=== PATIENT | male | born 1990 | race Caucasian/White ===

== ENCOUNTER 2017-01-18 23:52 | Emergency (ER) | payer SELFPAY ==
[~2017-01-18] VITALS: Ht 170.2 cm; Wt 80.0 kg
[~2017-01-18 23:52] MED LIST: CLIN150 PO; IBUP800T23 PO; LEVA750T PO
[2017-01-18 23:55] VITALS: BP 121/67; PULSE 80; RESP 14; TEMP 98.8; O2SAT 98
[2017-01-19 03:00] VITALS: BP 124/78; PULSE 80; RESP 18; O2SAT 97
--- NOTE | 2017-01-19 03:16 | PD ---
HPI Chief Complaint: Psychiatric Symptoms Time Seen by Provider: 03:09 Travel History International Travel<30 days: No Contact w/Intl Traveler<30days: No Traveled to known affect area: No History of Present Illness HPI 26-year-old white male presents to emergency department under voluntary basis for psychological evaluation. He states that he feels underappreciated and depressed. He states that he feels better when he takes Xanax. He states that he buys it on the street. He and his father live in another person's house. He claims that he suffers from anxiety and depression which she self diagnosed. He smokes cigarettes, marijuana and alcohol. He denies any other drugs. He denies any toxic ingestions. No medical complaints. He states that he would feel better if he had Xanax. No suicidal or homicidal ideation. PFSH Past Medical History ADHD: No Asthma: Yes Weight (Kg): 3 Anxiety: Yes Depression: No Cancer: No Cardiovascular Problems: No Diabetes: No Diminished Hearing: No Genitourinary: No Headaches: Yes (OCCASIONAL HEADACHES) Immune Disorder: No Musculoskeletal: No Psychiatric: Yes Reproductive: No Respiratory: Yes Migraines: No Seizures: No Thyroid Disease: No Ulcer: No Tetanus Vaccination: < 5 Years Past Surgical History Surgical History: No Previous Surgery Appendectomy: No Cholecystectomy: No Social History Alcohol Use: Yes (WEEKLY) Tobacco Use: Yes (QUIT 1 MONTH AGO 1/2 pack every 3 days) Substance Use: Yes Allergies-Medications (Allergen,Severity, Reaction): Coded Allergies: Amoxicillin (Verified Allergy, Severe, 01/19/17) Has taken Keflex without any problem *MDRO Multi-Drug Resistant Organism (Verified Adverse Reaction, Unknown, ) 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 SKIN: Warm and dry. HEAD: Normocephalic and atraumatic. EYES: No scleral icterus. No injection or drainage. ENT: No nasal drainage noted. Mucous membranes pink. Airway patent. NECK: Supple, trachea midline. Moves head freely without obvious discomfort. CARDIOVASCULAR: Regular rate and rhythm without murmurs, gallops, or rubs. RESPIRATORY: Breath sounds equal bilaterally. No accessory muscle use. GASTROINTESTINAL: Abdomen soft, non-tender, nondistended. EXTREMITIES: No cyanosis or edema. BACK: Nontender without obvious deformity. No CVA tenderness. NEURO: Patient is alert and oriented. no sensorimotor deficits. Nonfocal. Normal speech. PSYCH: No delusions. No auditory or visual hallucinations. Data Data Last Documented VS Vital Signs Date Time Temp Pulse Resp B/P Pulse Ox O2 Delivery O2 Flow Rate FiO2 01/18/17 23:55 98.8 80 14 121/67 98 Room Air Orders Psych Screen (01/19/17 03:05) MDM Medical Decision Making Medical Screen Exam Complete: Yes Emergency Medical Condition: Yes Medical Record Reviewed: Yes Differential Diagnosis MDM: High Differential diagnoses: Schizophrenia, schizoaffective disorder, bipolar, anxiety, depression, adjustment reaction, mood disorder NOS, ODD, depressive disorder NOS, dementia, dementia with agitation, psychosis NOS, substance induced mood disorder, intermittent explosive disorder, Asperger syndrome, infection,electrolyte abnormality, malingering. Narrative Course Mental health screening discussed with the patient. Psychiatric screen ordered. The patient is medically cleared. This is medical clearance for psych eval Diagnosis Primary Impression: Medical clearance for psychiatric admission Scripts No Active Prescriptions or Reported Meds Condition: Stable Aelssandro Ferreira January 19, 2017 03:16
[2017-01-19 06:06] VITALS: BP 118/74; PULSE 72; RESP 18; O2SAT 97
--- NOTE | 2017-01-19 09:53 | PD ---
History of Present Illness Chief Complaint: Psychiatric Symptoms Time Seen by Provider: 09:50 Travel History International Travel<30 Days: No Contact w/Intl Traveler<30days: No Known affected area: No Legal Status Legal Status: Voluntary History of Present Illness: istory of Present Illness HPI 26-year-old white male presents to emergency department under voluntary basis for psychological evaluation. He states that he feels underappreciated and depressed. He states that he feels better when he takes Xanax. He states that he buys it on the street. He and his father live in another person's house. He claims that he suffers from anxiety and depression which she self diagnosed. He smokes cigarettes, marijuana and alcohol. He denies any other drugs. He denies any toxic ingestions. No medical complaints. He states that he would feel better if he had Xanax. No suicidal or homicidal ideation. Patient seen. Not suicidal or homicidal. Is requesting help with his recovery and substance abuse treatment options. PFSH Past Medical History ADHD: No Asthma: Yes Weight (Kg): 3 Anxiety: Yes Depression: No Cancer: No Cardiovascular Problems: No Diabetes: No Diminished Hearing: No Genitourinary: No Headaches: Yes (OCCASIONAL HEADACHES) Immune Disorder: No Musculoskeletal: No Psychiatric: Yes Reproductive: No Respiratory: Yes Migraines: No Seizures: No Thyroid Disease: No Ulcer: No Tetanus Vaccination: < 5 Years Past Surgical History Surgical History: No Previous Surgery Appendectomy: No Cholecystectomy: No Psychiatric History Psychiatric History Hx Psychiatric Treatment: [facility] [place] History of Inpatient Treatment: Yes Social History Hx Alcohol Use: Yes (WEEKLY) Hx Tobacco Use: Yes (QUIT 1 MONTH AGO 1/2 pack every 3 days) Hx Substance Use: Yes Substance Use Type: Alcohol, Marijuana, Nicotine/Cigarettes Hx of Substance Use Treatment: Yes (Detox x 5 years. 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 Orders Psych Screen (01/19/17 03:05) Diet Regular Basic (01/19/17 Breakfast) Results Vital Signs Date Time Temp Pulse Resp B/P Pulse Ox O2 Delivery O2 Flow Rate FiO2 01/19/17 06:06 72 18 118/74 97 Room Air 01/19/17 03:00 80 18 124/78 97 Room Air 01/18/17 23:55 98.8 80 14 121/67 98 Room Air Diagnosis Primary Impression: Medical clearance for psychiatric admission Psychiatrically Cleared: Yes Prescriptions No Active Prescriptions or Reported Meds Condition: Stable Savanah Strange January 19, 2017 09:53
--- NOTE | 2017-01-19 16:29 | PD ---
History of Present Illness Chief Complaint: Psychiatric Symptoms Time Seen by Provider: 09:40 Travel History International Travel<30 Days: No Contact w/Intl Traveler<30days: No Known affected area: No Legal Status Legal Status: Voluntary History of Present Illness: History of Present Illness HPI 26-year-old white male with past history of depressive disorder, nos as well as substance use disorder including marijuana, cocaine and benzodiazepine who presents to emergency department under voluntary basis for psychological evaluation. As per ED documentation he reported the following symptomatology ; " he feels unappreciated and depressed. He states that he feels better when he takes Xanax. He states that he buys it on the street. He and his father live in another person's house. He claims that he suffers from anxiety and depression . He smokes cigarettes, marijuana and alcohol. He denies any other drugs. He denies any toxic ingestions. No medical complaints. He states that he would feel better if he had Xanax. No suicidal or homicidal ideation.' The patient is seen. The EMR is reviewed. No laboratory data is available as no labs were drawn. He was last evaluated by psychiatry in 2013 in ED and was referred to [facility] for treatment of substance induced mood disorder. His only psychiatric admission was in 2008 at age [age] years old. The patient is alert, oriented male who is casually dressed. Appears to be maintaining basic hygiene. Speech is clear and logical, goal directed. There is no pressure. There is no psychosis and no jerel. He is requesting medication and more specifically Xanax. At the time of this evaluation he does not appear to be anxious. There is no suicidal or homicidal ideation, intent or plan. PFSH Past Medical History ADHD: No Asthma: Yes Weight (Kg): 3 Anxiety: Yes Depression: No Cancer: No Cardiovascular Problems: No Diabetes: No Diminished Hearing: No Genitourinary: No Headaches: Yes (OCCASIONAL HEADACHES) Immune Disorder: No Musculoskeletal: No Psychiatric: Yes Reproductive: No Respiratory: Yes Migraines: No Seizures: No Thyroid Disease: No Ulcer: No Tetanus Vaccination: < 5 Years Past Surgical History Surgical History: No Previous Surgery Appendectomy: No Cholecystectomy: No Psychiatric History Psychiatric History Hx Psychiatric Treatment: [facility] [place] in 2008 History of Inpatient Treatment: Yes Guns or firearms in home: No Social History Single male.Lives with his father. Hx Alcohol Use: Yes (WEEKLY) Hx Tobacco Use: Yes (QUIT 1 MONTH AGO 1/2 pack every 3 days) Hx Substance Use: Yes Substance Use Type: Alcohol, Marijuana, Nicotine/Cigarettes Hx of Substance Use Treatment: Yes (Detox x 5 years. 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 not impaired [facility] Medical Decision Making Medical Record Reviewed: Yes Assessment/Plan 26 year old male with hx of substance use disorder who presents to ED requesting psychiatric medication and more specifically Xanax. There is no other symptomatology reported. The patient at this time does not appear to be anxious. I have advised that he contact [facility] to engage inpatient treatment. At this time the patient does not meet criteria for inpatient psychiatric treatment. Staff will assist in setting up appointment for outpatient treatment. Orders Psych Screen (01/19/17 03:05) Diet Regular Basic (01/19/17 Breakfast) Results Vital Signs Date Time Temp Pulse Resp B/P Pulse Ox O2 Delivery O2 Flow Rate FiO2 01/19/17 06:06 72 18 118/74 97 Room Air 01/19/17 03:00 80 18 124/78 97 Room Air 01/18/17 23:55 98.8 80 14 121/67 98 Room Air Diagnosis Primary Impression: Medical clearance for psychiatric admission Additional Impression: Adjustment disorder Psychiatrically Cleared: Yes Referrals: [facility] (Out patient) YOU HAVE AN APPOINTMENT ON JANUARY 25Sunday AT 0800 AM [address]: [id number], [facility] Departure Forms: Tests/Procedures Patient Instructions: General Instructions, Mood Disorders (ED) Additional Instructions: FOLLOW UP WITH [facility] ANTHONY MENDEZ Med/ Other Pt Specific Info: No Meds Exist/No RX given Prescriptions No Active Prescriptions or Reported Meds Disposition: 01 DISCHARGE HOME Condition: Stable Problem Qualifiers Additional Impression: Adjustment disorder Qualified Code: F43.22 - Adjustment disorder with anxious mood Savanah Strange January 19, 2017 16:29
== END 2017-01-19 10:32 | disposition home or self-care (01) ==
LOC: NEPD 23:52
DX: F43.20 Adjustment disorder, unspecified (principal)
CPT/HCPCS: 99284

== ENCOUNTER 2017-01-27 17:40 | Emergency (ER) | payer SELFPAY ==
[2017-01-27 17:41] VITALS: BP 130/68; PULSE 84; RESP 24; TEMP 98.3; O2SAT 97
[2017-01-27 18:40] VITALS: BP 125/69; PULSE 80; RESP 18; TEMP 99; O2SAT 95
--- NOTE | 2017-01-27 19:31 | PD ---
HPI Chief Complaint: Suicide Ideation/Attempt Time Seen by Provider: 19:27 Travel History International Travel<30 days: No Contact w/Intl Traveler<30days: No Traveled to known affect area: No History of Present Illness HPI 26-year-old male that presents to the ED for evaluation of suicidal ideation. Patient has a chronic history of depression and suicidal deviation. Patient also has a history of substance abuse including abusing Xanax. Patient was here just a week ago. He denies any chest pain or shortness of breath. Denies any medical complaints. Per patient he is here voluntarily to get evaluated by psychiatry as he feels that he will commit suicide if he doesn't get any help. He has no plan however. He denies any substance abuse or alcohol yesterday. Allergy to amoxicillin. No abdominal pain. No Nausea or vomiting. PFSH Past Medical History ADHD: No Asthma: Yes Weight (Kg): 3 Anxiety: Yes Depression: No Cancer: No Cardiovascular Problems: No Diabetes: No Patient Takes Glucophage: No Diminished Hearing: No Genitourinary: No Headaches: Yes (OCCASIONAL HEADACHES) Immune Disorder: No Musculoskeletal: No Psychiatric: Yes Reproductive: No Respiratory: Yes Immunizations Current: Yes Migraines: No Seizures: No Thyroid Disease: No Ulcer: No Tetanus Vaccination: Unknown Influenza Vaccination: No Past Surgical History Appendectomy: No Cholecystectomy: No Other Surgery: No Social History Alcohol Use: Yes (WEEKLY) Tobacco Use: Yes (QUIT 1 MONTH AGO 1/2 pack every 3 days) Substance Use: Yes Allergies-Medications (Allergen,Severity, Reaction): Coded Allergies: Amoxicillin (Verified Allergy, Severe, 01/27/17) Has taken Keflex without any problem *MDRO Multi-Drug Resistant Organism (Verified Adverse Reaction, Unknown, ) 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 HEAD: Atraumatic. Normocephalic. EYES: Pupils equal and round. No scleral icterus. No injection or drainage. ENT: No nasal bleeding or discharge. Mucous membranes pink and moist. Tongue is midline. No uvula deviation. NECK: Trachea midline. No JVD. CARDIOVASCULAR: Regular rate and rhythm. No murmurs, S3, S4. RESPIRATORY: No accessory muscle use. Clear to auscultation. Breath sounds equal bilaterally. GASTROINTESTINAL: Abdomen soft, non-tender, nondistended. Hepatic and splenic margins not palpable. MUSCULOSKELETAL: Extremities without clubbing, cyanosis, or edema. No obvious deformities. Full range of motion of the upper and lower extremities bilaterally. 2+ pulses bilaterally. NEUROLOGICAL: Awake and alert. No obvious cranial nerve deficits. Motor grossly within normal limits. Five out of 5 muscle strength in the arms and legs. Normal speech. PSYCHIATRIC: Appropriate mood and affect; insight and judgment normal. Data Data Last Documented VS Vital Signs Date Time Temp Pulse Resp B/P Pulse Ox O2 Delivery O2 Flow Rate FiO2 01/27/17 18:40 99.0 80 18 125/69 95 Room Air Orders Complete Blood Count With Diff (01/27/17 18:12) Comprehensive Metabolic Panel (01/27/17 18:12) Psych Screen (01/27/17 18:12) Drug Screen, Random Urine (01/27/17 18:12) Alcohol (Ethanol) (01/27/17 18:12) MDM Medical Decision Making Medical Screen Exam Complete: Yes Emergency Medical Condition: Yes Medical Record Reviewed: Yes Differential Diagnosis Depression versus suicidal ideation versus anxiety versus adjustment disorder versus mood disorder versus bipolar disorder versus schizophrenia versus paranoid disorder versus psychosis versus substance abuse versus alcohol abuse versus alcohol induced psychosis versus homicidality addition versus cutting versus personality disorder Narrative Course 26-year-old male that presents to the ED for evaluation of psych. Patient was properly examined and was found to have signs and symptoms consistent with psychiatric illness. No sign of acute medical distress. Labs were drawn. Patient was medically clear. Okay to be seen by psych. Mental health screening was discussed with the patient. Diagnosis Primary Impression: Adjustment disorder Qualified Code: F43.20 - Adjustment disorder, unspecified type Scripts No Active Prescriptions or Reported Meds Waldo Healy January 27, 2017 19:31
[2017-01-27 19:35] LABS: AUTOMATED NEUTROPHIL # 4.3 TH/MM3 (1.8-7.7); BASOPHIL # 0.1 TH/MM3 (0-0.2); BASOPHIL % 0.9 % (0.0-2.0); EOSINOPHIL # 0.2 TH/MM3 (0-0.4); EOSINOPHIL % 2.9 % (0.0-4.0); HEMATOCRIT 42.3 % (39.0-51.0); HEMO FLAGS DIFF FINAL; LYMPH % 30.3 % (9.0-44.0); LYMPHOCYTE # 2.3 TH/MM3 (1.0-4.8); MEAN CELL VOLUME 91.8 FL (80.0-100.0); MEAN CORPUSCULAR HGB CONC 34.9 % (32.0-36.0); MONO % 8.2 % (0.0-8.0); NEUT % 57.7 % (16.0-70.0); PLATELET COUNT 261 TH/MM3 (150-450); RED BLOOD COUNT 4.61 MIL/MM3 (4.50-5.90); RED CELL DISTRIBUTION WIDTH 13.6 % (11.6-17.2); WHITE BLOOD COUNT 7.5 TH/MM3 (4.0-11.0)
[2017-01-27 19:52] LABS: AMPHETAMINE, URINE NEG (NEG); BARBITURATES, URINE NEG (NEG); COCAINE, URINE POS (NEG)
[2017-01-27 20:11] LABS: ALKALINE PHOSPHATASE 41 U/L (45-117); ALT (GPT) 38 U/L (12-78); ANION GAP 10 MEQ/L (5-15); AST (GOT) 24 U/L (15-37); BICARBONATE 26.5 MEQ/L (21.0-32.0); BLOOD UREA NITROGEN 12 MG/DL (7-18); CHLORIDE 106 MEQ/L (98-107); GLOMERULAR FILTRATION RATE 102 ML/MIN (>89); POTASSIUM 4.2 MEQ/L (3.5-5.1); SODIUM (NA) 142 MEQ/L (136-145); TOTAL BILIRUBIN ADULT 0.3 MG/DL (0.2-1.0)
[2017-01-27 22:12] VITALS: BP 95/53; PULSE 62; RESP 18
[2017-01-28 02:30] VITALS: BP 109/65; PULSE 76; RESP 18
[2017-01-28 06:06] VITALS: BP 108/66; PULSE 70; RESP 18; O2SAT 97
== END 2017-01-28 10:13 | disposition home or self-care (01) ==
LOC: NEPJ 17:40
DX: F43.20 Adjustment disorder, unspecified (principal)
CPT/HCPCS: 80053; 80307; 85025; 99282